=== PATIENT | female | born 1960 | race Asian ===

== ENCOUNTER 2020-05-28 22:27 | Inpatient (IN) | payer BC, OTHER ==
[~2020-05-28] VITALS: Ht 154.9 cm; Wt 65.9 kg
[2020-05-28] MEDS: HumaLOG INSULIN (NovoLOG) PER UNIT SC SCH (21:00)
[2020-05-28] MEDS ORDERED: NS 500 ML IV ONE (22:45)
[2020-05-28 23:18] LABS: VENOUS BASE EXCESS -2.1 (-2.0-2.0); VENOUS HCO3 23.2 MEQ/L (23.0-27.0); VENOUS O2 SATURATION 86.9 % (60.0-80.0); VENOUS PARTIAL PRESSURE CO2 41.8 mmHg (38.0-50.0); VENOUS PARTIAL PRESSURE O2 54.9 mmHg (30.0-50.0); VENOUS PH 7.362 UNITS (7.330-7.430); VENOUS STANDARD HCO3 22.5 MEQ/L; VENOUS TOTAL CO2 24.5 MEQ/L (24.0-28.0)
[2020-05-28 23:22] LABS: BASO % 0.2 % (0.0-1.0); HEMATOCRIT 32.4 % (36.0-47.0); HEMOGLOBIN 10.5 g/dl (12.0-15.5); LYMPH # 0.8 10^3/uL (1.5-5.0); LYMPH % 16.1 % (24.0-44.0); MEAN CORPUSCULAR HEMOGLOBIN 26.1 pg (27.0-33.0); MEAN CORPUSCULAR HGB CONC 32.4 g/dl (32.0-36.5); MEAN CORPUSCULAR VOLUME 80.4 fl (80.0-96.0); MONO # 0.2 10^3/uL (0.0-0.8); MONO % 4.2 % (2.0-8.0); NEUTROPHILS # 3.9 10^3/uL (1.5-8.5); NEUTROPHILS % 78.7 % (36.0-66.0); PLATELET COUNT, AUTOMATED 190 10^3/uL (150-450); RED BLOOD COUNT 4.03 10^6/uL (4.00-5.40)
--- NOTE | 2020-05-28 23:25 | REPVR ---
PROCEDURE INFORMATION: Exam: XR Chest, 1 View Exam date and time: 05/28/2020 11:07 PM Age: 60 years old Clinical indication: Cough; Additional info: Coronavirus workup TECHNIQUE: Imaging protocol: XR of the chest Views: 1 view. COMPARISON: No relevant prior studies available. FINDINGS: Lungs: There is mild prominence of bronchovascular markings. However, there is no evidence of localized consolidation of lung. Pleural spaces: There is no evidence of pneumothorax or pleural effusion. Heart/Mediastinum: The heart is normal in size. Bones/joints: Unremarkable. IMPRESSION: Clear appearing lungs. Electronically signed by: Patel Rios On 05/28/2020 23:26:04 PM
[2020-05-28 23:39] LABS: INR 0.99; PROTHROMBIN TIME 13.3 SECONDS (12.5-14.3)
[2020-05-28 23:40] LABS: PARTIAL THROMBOPLASTIN TIME 39.4 SECONDS (24.2-38.5)
[2020-05-28 23:43] LABS: D-DIMER QUANT 2446.78 ng/ml (<500)
[2020-05-28 23:48] LABS: ALBUMIN 3.1 GM/DL (3.2-5.2); ALT/SGPT 105 U/L (12-78); BILIRUBIN,TOTAL 0.6 MG/DL (0.2-1.0); BLOOD UREA NITROGEN 13 MG/DL (7-18); CALCIUM LEVEL 8.2 MG/DL (8.8-10.2); CARBON DIOXIDE LEVEL 28 MEQ/L (21-32); CHLORIDE LEVEL 99 MEQ/L (98-107); CK-MB VALUE MASS < 1.0 NG/ML (<3.6); CPK CREATINE PHOSPHOKINASE 258 U/L (26-192); FERRITIN 1445 NG/ML (8-252); GLOMERULAR FILTRATION RATE > 60.0 (>45); GLUCOSE, FASTING 175 MG/DL (70-100); LDH LACTATE DEHYDROGENASE 523 U/L (84-246); MAGNESIUM LEVEL 1.6 MG/DL (1.8-2.4); MB/CK RELATIVE INDEX 0.39 (< OR =4); POTASSIUM SERUM 4.1 MEQ/L (3.5-5.1); SODIUM LEVEL 134 MEQ/L (136-145); TOTAL PROTEIN 6.8 GM/DL (6.4-8.2); TROPONIN I < 0.02 NG/ML (< 0.10)
[2020-05-28] MEDS ORDERED: ZOLO100T PO (23:55)
[2020-05-28] MEDS ORDERED: JANU50TA8 PO (23:55)
[2020-05-28] MEDS ORDERED: VITA50005 PO (23:55)
[2020-05-28] MEDS ORDERED: ATOR40TA75 PO (23:55)
[2020-05-28] MEDS ORDERED: LANTINJ4 SC (23:55)
--- OUTSIDE RECORDS SUMMARY | 2020-05-28 23:56 | CCD | Continuity of Care Document ---
Author Author Fabienne CARMICHAEL Organization Unknown Address [address] [place] [address] [address] [place] [address] Phone [phone] Care Team Providers Care Seat Joiner Name Role Phone ANAY CARMICHAEL AUTM [phone] Social History Type Date Description Comments Sex Unknown Assessments Date Code Description Provider 04/14/2020 Z03.818 Encounter for observ ation for suspected exposure to other biological agents ruled out MAGNUS Eugene
--- OUTSIDE RECORDS SUMMARY | 2020-05-28 23:57 | CCD ---
Author Author [facility] Organization [facility] Address Unknown Phone Unavailable Care Team Providers Care Parcel Post Weigher Name Role Phone REASON, L EDWARD DO Unavailable Unavailable REASON, L EDWARD DO Unavailable Unavailable REASON, L EDWARD DO Unavailable Unavailable REASON, L EDWARD DO Unavailable Unavailable REASON, L EDWARD DO Unavailable Unavailable REASON, L EDWARD DO Unavailable Unavailable REASON, L EDWARD DO Unavailable Unavailable REASON, L EDWARD DO Unavailable Unavailable REASON, L EDWARD DO Unavailable Unavailable REASON, L EDWARD DO Unavailable Unavailable REASON, L EDWARD DO Unavailable Unavailable REASON, L EDWARD DO Unavailable Unavailable REASON, L EDWARD DO Unavailable Unavailable REASON, L EDWARD DO Unavailable Unavailable REASON, L EDWARD DO Unavailable Unavailable REASON, L EDWARD DO Unavailable Unavailable REASON, L EDWARD DO Unavailable Unavailable REASON, L EDWARD DO Unavailable Unavailable REASON, L EDWARD DO Unavailable Unavailable REASON, L EDWARD DO Unavailable Unavailable REASON, L EDWARD DO Unavailable Unavailable REASON, L EDWARD DO Unavailable Unavailable REASON, L EDWARD DO Unavailable Unavailable REASON, L EDWARD DO Unavailable Unavailable REASON, L EDWARD DO Unavailable Unavailable REASON, L EDWARD DO Unavailable Unavailable REASON, L EDWARD DO Unavailable Unavailable REASON, L EDWARD DO Unavailable Unavailable REASON, L EDWARD DO Unavailable Unavailable REASON, L EDWARD DO Unavailable Unavailable REASON, L EDWARD DO Unavailable Unavailable REASON, L EDWARD DO Unavailable Unavailable REASON, L EDWARD DO Unavailable Unavailable REASON, L EDWARD DO Unavailable Unavailable REASON, L EDWARD DO Unavailable Unavailable REASON, L EDWARD DO Unavailable Unavailable REASON, L EDWARD DO Unavailable Unavailable REASON, L EDWARD DO Unavailable Unavailable REASON, L EDWARD DO Unavailable Unavailable REASON, L EDWARD DO Unavailable Unavailable REASON, L EDWARD DO Unavailable Unavailable REASON, L EDWARD DO Unavailable Unavailable REASON, L EDWARD DO Unavailable Unavailable REASON, L EDWARD DO Unavailable Unavailable REASON, L EDWARD DO Unavailable Unavailable REASON, L EDWARD DO Unavailable Unavailable REASON, L EDWARD DO Unavailable Unavailable REASON, L EDWARD DO Unavailable Unavailable REASON, L EDWARD DO Unavailable Unavailable REASON, L EDWARD DO Unavailable Unavailable REASON, L EDWARD DO Unavailable Unavailable REASON, L EDWARD DO Unavailable Unavailable REASON, L EDWARD DO Unavailable Unavailable REASON, L EDWARD DO Unavailable Unavailable REASON, L EDWARD DO Unavailable Unavailable REASON, L EDWARD DO Unavailable Unavailable REASON, L EDWARD DO Unavailable Unavailable REASON, L EDWARD DO Unavailable Unavailable REASON, L EDWARD DO Unavailable Unavailable REASON, L EDWARD DO Unavailable Unavailable REASON, L EDWARD DO Unavailable Unavailable REASON, L EDWARD DO Unavailable Unavailable REASON, L EDWARD DO Unavailable Unavailable REASON, L EDWARD DO Unavailable Unavailable REASON, L EDWARD DO Unavailable Unavailable Re-disclosure Warning The records that you are about to access may contain information from federally-assisted alcohol or drug abuse programs. If such information is present, then the following federally mandated warning applies: This information has been disclosed to you from records protected by federal confidentiality rules (42 CFR part 2). The federal rules prohibit you from making any further disclosure of this information unless further disclosure is expressly permitted by the written consent of the person to whom it pertains or as otherwise permitted by 42 CFR part 2. A general authorization for the release of medical or other information is NOT sufficient for this purpose. The Federal rules restrict any use of the information to criminally investigate or prosecute any alcohol or drug abuse patient.The records that you are about to access may contain highly sensitive health information, the redisclosure of which is protected by Article 27-F of the [facility] Public Health law. If you continue you may have access to information: Regarding HIV / AIDS; Provided by facilities licensed or operated by the [facility] Office of Mental Health; or Provided by the [facility] Office for People With Developmental Disabilities. If such information is present, then the following [facility] mandated warning applies: This information has been disclosed to you from confidential records which are protected by state law. State law prohibits you from making any further disclosure of this information without the specific written consent of the person to whom it pertains, or as otherwise permitted by law. Any unauthorized further disclosure in violation of state law may result in a fine or retirement sentence or both. A general authorization for the release of medical or other information is NOT sufficient authorization for further disc losure. Encounters Encounter Providers Location Date Indications Data Source(s ) Outpatient Attender: EDSHANIQUA REASON DO [facility] 01/25 05:54:00 PM EDT - 01/26/2020 05:55:00 PM EDT E11.41 E03.9 E78.5 E55.9 [facility] E11.41 E03.9 E78.5 E55.9 Patient discharged. Insurance Providers Payer name Policy type / Coverage type Policy ID Covered green party ID Covered green party's relationship to mast Policy Mast Plan Information [place] 302/307 [id number] SP [id number] [employer] CLAIM[employer] [id number] SP [id number] [employer] [place] [id number] S [id number] [employer] [place] [id number] S [id number] BCBS of [facility] [place] Other 0 Self 0 BLUE CROSS -O/P [id number] 18 [id number] BLUE CROSS -O/P [id number] [employer] EM[employer]OYEE -OP [id number] MEMIC - CLINIC [id number] [employer] EMPLOYEE -OP VYS 18 VYS MEMIC -O/P [id number] WORKERS COMP - CLINIC [id number] MEMIC -O/P [id number] [employer] EMPLOYEE -OP [id number] 18 [id number] Problems, Conditions, and Diagnoses Code Display Name Description Problem Type Effective Dates Data Source(s) E55.9 Vitamin D deficiency, unspecified VITAMIN D DEFI CIENCY, UNSPECIFIED Diagnosis 01/26/2020 05:54:00 PM EDT [facility] E78.5 Hyperlipidemia, unspecified HYPERLIPIDEMIA, UNSPECIFIE D Diagnosis 01/26/2020 05:54:00 PM [facility] E03.9 Hypothyroidism, unspecified HYPOTHYROIDISM, UNSPECIFIE D Diagnosis 01/26/2020 05:54:00 PM [facility] E11.41 Type 2 diabetes mellitus with diabetic m ononeuropathy TYPE 2 DIABETES MELLITUS WITH DIABETIC MONONEUROPATHY Diagnosis 01/26/2020 05:54:00 PM [facility] Surgeries/Procedures Procedure Description Date Indications Data Source(s) THYROXINE FREE ASSAY OF FREE THYROXINE 01/26/2020 12:00:00 AM [facility] THYROID STIMULATING HORMONE TSH ASSAY THYROID STIM HORMONE 1 12:00:00 AM [facility] 25 HYDROXY INCLUDES FRACTIONS IF PERFORMED VITAMIN D 25 HYDR OXY 01/26/2020 12:00:00 AM [facility] URNLS DIP STICK/TABLET REAGENT AUTO MICROSCOPY URINALYSIS AU TO W/SCOPE 01/26/2020 12:00:00 AM [facility] COLLECTION VENOUS BLOOD VENIPUNCTURE ROUTINE VENIPUNCTURE 12:00:00 AM [facility] BLOOD COUNT COMPLETE AUTO&AUTO DIFRNTL WBC COUNT COMPLETE CB C W/AUTO DIFF WBC 01/26/2020 12:00:00 AM [facility] HEMOGLOBIN GLYCOSYLATED A1C GLYCOSYLATED HEMOGLOBIN TEST 03/2020 12:00:00 AM [facility] LIPID PANEL LIPID PANEL 01/26/2020 12:00:00 AM [facility] COMPREHENSIVE METABOLIC PANEL COMPREHEN METABOLIC PANEL 01/14 12:00:00 AM [facility] Results ID Date Data Source [id number] 04/14/2020 12:00:00 AM EST [facility] Name Value Range Interpretation Code Description Data Janelle rce(s) Supporting Document(s) SARS-CoV2 Rapid Antigen [facility] This lab was ordered by [facility] and reported by Howie Seaman MD. ID Date Data Source [id number] 01/26/2020 07:35:00 PM [facility] Name Value Range Interpretation Code Description Data Janelle rce(s) Supporting Document(s) Sodium 135 mmol/L 136-145 Below low normal [facility] ospital Potassium 3.5-5.1 Normal (applies to non-numeric resul ts) [facility] Chloride 96 mmol/L 98-107 Below low normal [facility] spital Carbon Dioxide CO2 21-32 Normal (applies to non-numer ic results) [facility] Anion Gap 5.0-16.0 Normal (applies to non-numeric resul ts) [facility] BUN 9 mg/dL 7-18 Normal (applies to non-numeric results) [facility] Creatinine,Serum 0.7-1.2 Normal (applies to non-numeric results) [facility] GFR >60 Normal (applies to non-numeric results) [facility] Glucose Level 175 mg/dL 60-99 Above high normal [facility] Reference range is only applicable when patient is fasting Note the following drug interference: Sulfasalazine Sulfapyridine Can see falsely depressed Can see falsely elevated result with up to 17% results with up to 11% decrease in measurement increase in measurement Recommend patients be collected for this test prior to administration of either drug. Calcium 8.5-10.1 Normal (applies to non-numeric resul ts) [facility] Bilirubin,Total 0.1-1.9 Normal (applies to non-numeric results) [facility] SGOT(AST) 26 U/L 15-37 Normal (applies to non-numeric resul ts) [facility] Note the following drug interference: Sulfasalazine Sulfapyridine Can see falsely depressed Can see falsely elevated result with up to 10% results with up to 10% decrease in measurement increase in measurement Recommend patients be collected for this test prior to administration of either drug. SGPT(ALT) 36 U/L 12-78 Normal (applies to non-numeric resul ts) [facility] Note the following drug interference: Sulfasalazine Sulfapyridine Can see falsely depressed Can see falsely elevated result with up to 29% results with up to 10% decrease in measurement increase in measurement Recommend patients be collected for this test prior to administration of either drug. Alkaline Phosphatase 81 U/L 38-126 Normal (applies to non-num manuel results) [facility] can increase Alkaline Phosp le vels up to 2 times the normal adult value. Normal values for children and adolescents are 2 to 3 times the normal adult value. Total Protein 6.0-8.2 Normal (applies to non-numeric re sults) [facility] Albumin Level 3.4-5.0 Normal (applies to non-numeric re sults) [facility] ID Date Data Source [id number] 01/26/2020 07:35:00 PM EDT [facility] Name Value Range Interpretation Code Description Data Janelle rce(s) Supporting Document(s) Triglycerides 365 mg/dL <150 Above high normal [facility] Cholesterol 280 mg/dL 100-200 Above high normal [facility] LDL Cholesterol Calculated 149 0-130 Above high normal [facility] HDL Cholesterol 58 mg/dL 40-60 Normal (applies to non-numeric results) [facility] Cholesterol/HDL Ratio 3.6-6.7 Normal (applies to non-nu meric results) [facility] ID Date Data Source [id number] 01/26/2020 07:35:00 PM [facility] Name Value Range Interpretation Code Description Data Janelle rce(s) Supporting Document(s) Thyroid Stimulate Hormone TSH 0.358-3.74 No rmal (applies to non-numeric results) [facility] ID Date Data Source [id number] 01/26/2020 07:35:00 PM [facility] Value Range Interpretation Code Description Data Janelle rce(s) Supporting Document(s) Free T4 (Free Thyroxine) 0.76-1.46 Normal (applies to non -numeric results) [facility] ID Date Data Source [id number] 01/26/2020 07:34:00 PM [facility] Value Range Interpretation Code Description Data Janelle rce(s) Supporting Document(s) Vitamin D, Total 30.0-100.0 Below low normal [facility] ID Date Data Source [id number] 01/26/2020 07:09:00 PM EDT [facility] Name Value Range Interpretation Code Description Data Janelle rce(s) Supporting Document(s) Color,Urine Colorl-Dk Y Normal (applies to non-numeric res ults) [facility] Clarity,Urine Clear Normal (applies to non-numeric re sults) [facility] Specific [place],Urine 1.005-1.030 Normal (applies to non- numeric results) [facility] pH,Urine 5.0-8.0 Normal (applies to non-numeric resul ts) [facility] Protein,Urine Negative Normal (applies to non-numeric re sults) [facility] Glucose,Urine Negative Normal (applies to non-numeric re sults) [facility] Ketones,Urine Negative Normal (applies to non-numeric re sults) [facility] Blood,Urine Negative Normal (applies to non-numeric resu lts) [facility] Bilirubin,Urine Negative Normal (applies to non-numeric results) [facility] Urobilinogen,Urine 0.2-1.0 Normal (applies to non-numer ic results) [facility] Leukocyte Esterase,Urine Negative [facility] Nitrite,Urine Negative Normal (applies to non-numeric re sults) [facility] RBC,Urine None Seen Normal (applies to non-numeric resul ts) [facility] WBC,Urine None Seen [facility] Casts,Urine None Seen Normal (applies to non-numeric resu lts) [facility] Squamous Cells,Urine None Seen [facility] Transitional Cells,Ur None Seen [facility] Bacteria,Urine None Seen [facility] ital ID Date Data Source [id number] 01/26/2020 07:07:00 PM EDT [facility] Name Value Range Interpretation Code Description Data Janelle rce(s) Supporting Document(s) Hemoglobin A1c 4.4-6.2 Above high normal [facility] Estimated Avg Glucose 189 mg/dL 126-240 Normal (applies to non-numeric results) [facility] ID Date Data Source [id number] 01/26/2020 06:58:00 PM EDT [facility] Name Value Range Interpretation Code Description Data Janelle rce(s) Supporting Document(s) White Blood Count 3.5-10.5 Normal (applies to non-numeri c results) [facility] Red Blood Count 3.90-5.00 Normal (applies to non-numeric results) [facility] Hemoglobin 12.0-15.5 Normal (applies to non-numeric resul ts) [facility] Hematocrit 34.9-44.5 Normal (applies to non-numeric resul ts) [facility] Mean Corpuscular Volume 81.2-95.1 Normal (applies to non- numeric results) [facility] Mean Corpuscular Hgb 25.6-32.2 Normal (applies to non-num manuel results) [facility] Mean Corpuscular Hgb Conc 32.0-36.0 Below low normal [facility] Red Cell Distribution Width 11.9-15.5 Normal (appli es to non-numeric results) [facility] Platelet Count 261 x10 3/uL 150-450 Normal (applies to non-numeric results) [facility] Mean Platelet Volume 9.4-12.4 Below low normal [facility] Neutrophils% (Auto) 31.0-71.0 Normal (applies to non-nume eldon results) [facility] Lymphocytes% (Auto) 20.0-55.0 Normal (applies to non-nume eldon results) [facility] Monocytes% (Auto) 4.0-12.0 Normal (applies to non-numeri c results) [facility] Eosinophils% (Auto) 1.0-8.0 Normal (applies to non-nume eldon results) [facility] Basophils% (Auto) 0.0-2.0 Normal (applies to non-numeri c results) [facility] Immature Granulocytes% (Auto) 0.0-2.0 Normal (amaris lies to non-numeric results) [facility] Neutrophils# (Auto) 1.50-6.20 Normal (applies to non-nume eldon results) [facility] Lymphocytes# (Auto) 1.20-4.00 Normal (applies to non-nume eldon results) [facility] Monocytes# (Auto) 0.00-0.90 Normal (applies to non-numeri c results) [facility] Eosinophils# (Auto) 0.00-0.50 Normal (applies to non-nume eldon results) [facility] Basophils# (Auto) 0.00-0.20 Normal (applies to non-numeri c results) [facility] Immature Granulocytes# (Auto) 0.00-7.00 No rmal (applies to non-numeric results) [facility] Procedure
[2020-05-28] MEDS ORDERED: ZETI10TA16 PO (23:59)
[2020-05-29] MEDS ORDERED: ISOVUE-370 76% 100ML VIAL As Ordered ONE (00:15)
--- NOTE | 2020-05-29 01:13 | REPVR ---
PROCEDURE INFORMATION: Exam: CT Angiography Chest With Contrast Exam date and time: 05/28/2020 11:53 PM Age: 60 years old Clinical indication: Shortness of breath; Additional info: Hypoxia/covid19 TECHNIQUE: Imaging protocol: Computed tomographic angiography of the chest with contrast. 3D rendering (Not supervised by radiologist): MIP and/or 3D reconstructed images were created by the technologist. Radiation optimization: All CT scans at this facility use at least one of these dose optimization techniques: automated exposure control; mA and/or kV adjustment per patient size (includes targeted exams where dose is matched to clinical indication); or iterative reconstruction. Contrast material: ISO; Contrast volume: 100 ml; Contrast route: INTRAVENOUS (IV); COMPARISON: CR PORTABLE CHEST X-RAY 05/28/2020 11:01 PM FINDINGS: Pulmonary arteries: The main pulmonary artery measures 25 mm. No pulmonary embolism is identified. Aorta: The ascending thoracic aorta measures 29 mm. Lungs: Scattered bilateral areas of pulmonary infiltrate with minimal consolidation and minimal scattered fibro-atelectatic change. Pleural spaces: Unremarkable. No pneumothorax. No pleural effusion. Heart: Unremarkable. No cardiomegaly. No pericardial effusion. Mediastinal space: There is a rounded area of confluence posterior to the right hilum in the medial right lower lobe measuring 2.6 x 2.7 x 2.3 cm which may reflect an underlying mass. Lymph nodes: There are some borderline bilateral hilar nodes. Bones/joints: Unremarkable. No acute fracture. Soft tissues: Unremarkable. IMPRESSION: 1. Bilateral pulmonary infiltrates with areas of consolidation and fibro-atelectatic change consistent with pneumonia. 2. Rounded area of confluence in the medial right lower lobe and an underlying mass measuring 2.6 x 2.7 x 2.3 cm is not excluded. 3. Borderline bilateral hilar nodes. 4. Otherwise negative CTA chest. No pulmonary embolism is identified. Electronically signed by: Clayton Burch On 05/29/2020 01:13:31 AM
[2020-05-29] MEDS ORDERED: GLUCOSE 4GM CHEW TABLET PO PRN (01:30)
[2020-05-29] MEDS ORDERED: DEXTROSE 50% 50 ML SYRINGE IV PRN (01:30)
[2020-05-29] MEDS ORDERED: GLUCAGON INJ 1MG VIAL SC PRN (01:30)
--- OUTSIDE RECORDS SUMMARY | 2020-05-29 01:35 | CCD ---
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 If you continue you may have access to information: Regarding HIV / AIDS; Provided by facilities licensed or operated by the [facility] Office of Mental Health; or Provided by the [facility] Office for People With Developmental Disabilities. If such information is present, then the following [facility] mandated warning applies: This information has been [...] law may result in a fine or custodial sentence or both. A general authorization for the release of medical or other information is NOT sufficient authorization for further disc losure. Encounters Encounter Providers Location Date Indications Data Source(s ) Outpatient Attender: EDSHANIQUA REASON DO [facility] 01/25 05:54:00 PM EDT - 01/26/2020 05:55:00 PM EDT E11.41 E03.9 E78.5 E55.9 [facility] E11.41 E03.9 E78.5 E55.9 Patient discharged. Insurance Providers Payer name Policy type / Coverage type Policy ID Covered constitution party ID Covered constitution party's relationship to mast Policy Mast Plan Information [place] [id number]/[phone] [id number] SP [id number] [employer] CLAIMS [id number] SP [id number] [employer] [employer] [place] [id number] S [id number] [employer] [place] [id number] S [id number] BCBS of [facility] Other 0 Self 0 BLUE CROSS -O/P [id number] 18 [id number] BLUE CROSS -O/P [id number] 8 [id number] [employer] EMPLOYEE -OP [id number] MEMIC - CLINIC [id number] [employer] EMPLOYEE -OP VYS 18 VYS MEMIC -O/P [id number] WORKERS COMP - CLINIC [id number] 18 [id number] MEMIC -O/P [id number] 18 [id number] [employer] EMPLOYEE -OP [id number] Problems, Conditions, and Diagnoses Code Display Name Description Problem Type Effective Dates Data Source(s) E55.9 Vitamin D deficiency, unspecified VITAMIN D DEFI CIENCY, UNSPECIFIED Diagnosis 01/26/2020 05:54:00 PM EDT [facility] E78.5 Hyperlipidemia, unspecified HYPERLIPIDEMIA, UNSPECIFIE D Diagnosis 01/26/2020 05:54:00 PM [facility] E03.9 Hypothyroidism, unspecified HYPOTHYROIDISM, UNSPECIFIE D Diagnosis 01/26/2020 05:54:00 PM [facility] E11.41 Type 2 diabetes mellitus with diabetic m ononeuropathy TYPE 2 DIABETES MELLITUS WITH DIABETIC MONONEUROPATHY Diagnosis 01/26/2020 05:54:00 PM [facility] Surgeries/Procedures Procedure Description Date Indications Data Source(s) THYROXINE FREE ASSAY OF FREE THYROXINE 01/26/2020 12:00:00 AM [facility] THYROID STIMULATING HORMONE TSH ASSAY THYROID STIM HORMONE 1 12:00:00 AM [facility] 25 HYDROXY INCLUDES FRACTIONS IF PERFORMED VITAMIN D 25 HYDR OXY 01/26/2020 12:00:00 AM [facility] URNLS DIP STICK/TABLET REAGENT AUTO MICROSCOPY URINALYSIS AU TO W/SCOPE 01/26/2020 12:00:00 AM [facility] COLLECTION VENOUS BLOOD VENIPUNCTURE ROUTINE VENIPUNCTURE 12:00:00 AM [facility] BLOOD COUNT COMPLETE AUTO&AUTO DIFRNTL WBC COUNT COMPLETE CB C W/AUTO DIFF WBC 01/26/2020 12:00:00 AM [facility] HEMOGLOBIN GLYCOSYLATED A1C GLYCOSYLATED HEMOGLOBIN TEST 03/2020 12:00:00 AM [facility] LIPID PANEL LIPID PANEL 01/26/2020 12:00:00 AM [facility] COMPREHENSIVE METABOLIC PANEL COMPREHEN METABOLIC PANEL 01/14 12:00:00 AM [facility] Results ID Date Data Source [id number] 04/14/2020 12:00:00 AM EST [facility] Name Value Range Interpretation Code Description Data Janelle rce(s) Supporting Document(s) SARS-CoV2 Rapid Antigen [facility] This lab was ordered by [facility] and reported by Howie Seaman MD. ID Date Data Source [id number] 01/26/2020 07:35:00 PM [facility] Name Value Range Interpretation Code Description Data Janelle rce(s) Supporting Document(s) Sodium 135 mmol/L 136-145 Below low normal [facility] Potassium 3.5-5.1 Normal (applies to non-numeric resul ts) [facility] Chloride 96 mmol/L 98-107 Below low normal [facility] sp[facility] Carbon Dioxide CO2 21-32 Normal (applies to non-numer ic results) [facility] Anion Gap 5.0-16.0 Normal (applies to non-numeric resul ts) [facility] BUN 9 mg/dL 7-18 Normal (applies to non-numeric results) [facility] Creatinine,Serum 0.7-1.2 Normal (applies to non-numeric results) [facility] GFR >60 Normal (applies to non-numeric results) [facility] Glucose Level 175 mg/dL 60-99 Above high normal [facility] Reference range is only applicable when patient is fasting Note the following drug interference: Sulfasalazine Sulfapyridine Can see falsely depressed Can see falsely elevated result with up to 17% results with up to 11% decrease in measurement increase in measurement Recommend patients be collected for this test prior to administration of either drug. Calcium 8.5-10.1 Normal (applies to non-numeric resul ts) [facility] Bilirubin,Total 0.1-1.9 Normal (applies to non-numeric results) [facility] SGOT(AST) 26 U/L 15-37 Normal (applies to non-numeric resul ts) [facility] Note the following drug interference: Sulfasalazine Sulfapyridine Can see falsely depressed Can see falsely elevated result with up to 10% results with up to 10% decrease in measurement increase in measurement Recommend patients be collected for this test prior to administration of either drug. SGPT(ALT) 36 U/L 12-78 Normal (applies to non-numeric resul ts) [facility] Note the following drug interference: Sulfasalazine Sulfapyridine Can see falsely depressed Can see falsely elevated result with up to 29% results with up to 10% decrease in measurement increase in measurement Recommend patients be collected for this test prior to administration of either drug. Alkaline Phosphatase 81 U/L 38-126 Normal (applies to non-num manuel results) [facility] can increase Alkaline Phosp le vels up to 2 times the normal adult value. Normal values for children and adolescents are 2 to 3 times the normal adult value. Total Protein 6.0-8.2 Normal (applies to non-numeric re sults) [facility] Albumin Level 3.4-5.0 Normal (applies to non-numeric re sults) [facility] ID Date Data Source [id number] 01/26/2020 07:35:00 PM EDT [facility] Name Value Range Interpretation Code Description Data Janelle rce(s) Supporting Document(s) Triglycerides 365 mg/dL <150 Above high normal [facility] Cholesterol 280 mg/dL 100-200 Above high normal [facility] LDL Cholesterol Calculated 149 0-130 Above high normal [facility] HDL Cholesterol 58 mg/dL 40-60 Normal (applies to non-numeric results) [facility] Cholesterol/HDL Ratio 3.6-6.7 Normal (applies to non-nu meric results) [facility] ID Date Data Source [id number] 01/26/2020 07:35:00 PM [facility] Name Value Range Interpretation Code Description Data Janelle rce(s) Supporting Document(s) Thyroid Stimulate Hormone TSH 0.358-3.74 No rmal (applies to non-numeric results) [facility] ID Date Data Source [id number] 01/26/2020 07:35:00 PM [facility] Value Range Interpretation Code Description Data Janelle rce(s) Supporting Document(s) Free T4 (Free Thyroxine) 0.76-1.46 Normal (applies to non -numeric results) [facility] ID Date Data Source [id number] 01/26/2020 07:34:00 PM [facility] Value Range Interpretation Code Description Data Janelle rce(s) Supporting Document(s) Vitamin D, Total 30.0-100.0 Below low normal [facility] ID Date Data Source [id number] 01/26/2020 07:09:00 PM EDT [facility] Name Value Range Interpretation Code Description Data Janelle rce(s) Supporting Document(s) Color,Urine Colorl-Dk Y Normal (applies to non-numeric res ults) [facility] Clarity,Urine Clear Normal (applies to non-numeric re sults) [facility] Specific [place],Urine 1.005-1.030 Normal (applies to non- numeric results) [facility] pH,Urine 5.0-8.0 Normal (applies to non-numeric resul ts) [facility] Protein,Urine Negative Normal (applies to non-numeric re sults) [facility] Glucose,Urine Negative Normal (applies to non-numeric re sults) [facility] Ketones,Urine Negative Normal (applies to non-numeric re sults) [facility] Blood,Urine Negative Normal (applies to non-numeric resu lts) [facility] Bilirubin,Urine Negative Normal (applies to non-numeric results) [facility] Urobilinogen,Urine 0.2-1.0 Normal (applies to non-numer ic results) [facility] Leukocyte Esterase,Urine Negative [facility] Nitrite,Urine Negative Normal (applies to non-numeric re sults) [facility] RBC,Urine None Seen Normal (applies to non-numeric resul ts) [facility] WBC,Urine None Seen [facility] Casts,Urine None Seen Normal (applies to non-numeric resu lts) [facility] Squamous Cells,Urine None Seen [facility] Transitional Cells,Ur None Seen [facility] Bacteria,Urine None Seen [facility] ital ID Date Data Source [id number] 01/26/2020 07:07:00 PM EDT [facility] Name Value Range Interpretation Code Description Data Janelle rce(s) Supporting Document(s) Hemoglobin A1c 4.4-6.2 Above high normal [facility] Estimated Avg Glucose 189 mg/dL 126-240 Normal (applies to non-numeric results) [facility] ID Date Data Source [id number] 01/26/2020 06:58:00 PM EDT [facility] Name Value Range Interpretation Code Description Data Janelle rce(s) Supporting Document(s) White Blood Count 3.5-10.5 Normal (applies to non-numeri c results) [facility] Red Blood Count 3.90-5.00 Normal (applies to non-numeric results) [facility] Hemoglobin 12.0-15.5 Normal (applies to non-numeric resul ts) [facility] Hematocrit 34.9-44.5 Normal (applies to non-numeric resul ts) [facility] Mean Corpuscular Volume 81.2-95.1 Normal (applies to non- numeric results) [facility] Mean Corpuscular Hgb 25.6-32.2 Normal (applies to non-num manuel results) [facility] Mean Corpuscular Hgb Conc 32.0-36.0 Below low normal [facility] Red Cell Distribution Width 11.9-15.5 Normal (appli es to non-numeric results) [facility] Platelet Count 261 x10 3/uL 150-450 Normal (applies to non-numeric results) [facility] Mean Platelet Volume 9.4-12.4 Below low normal [facility] Neutrophils% (Auto) 31.0-71.0 Normal (applies to non-nume eldon results) [facility] Lymphocytes% (Auto) 20.0-55.0 Normal (applies to non-nume eldon results) [facility] Monocytes% (Auto) 4.0-12.0 Normal (applies to non-numeri c results) [facility] Eosinophils% (Auto) 1.0-8.0 Normal (applies to non-nume eldon results) [facility] Basophils% (Auto) 0.0-2.0 Normal (applies to non-numeri c results) [facility] Immature Granulocytes% (Auto) 0.0-2.0 Normal (amaris lies to non-numeric results) [facility] Neutrophils# (Auto) 1.50-6.20 Normal (applies to non-nume eldon results) [facility] Lymphocytes# (Auto) 1.20-4.00 Normal (applies to non-nume eldon results) [facility] Monocytes# (Auto) 0.00-0.90 Normal (applies to non-numeri c results) [facility] Eosinophils# (Auto) 0.00-0.50 Normal (applies to non-nume eldon results) [facility] Basophils# (Auto) 0.00-0.20 Normal (applies to non-numeri c results) [facility] Immature Granulocytes# (Auto) 0.00-7.00 No rmal (applies to non-numeric results) [facility] Procedure
[2020-05-29] MEDS ORDERED: REMDESIVIR 200 MG in NS 250 ML IV ONE (02:00)
[2020-05-29 03:16] VITALS: O2SAT 94
[2020-05-29 03:17] VITALS: BP 102/57
[2020-05-29] MEDS: LEVEMIR (INSULIN DETEMIR) 1 UNITS/0.01ML SC SCH ×2 (03:28→20:28)
[2020-05-29] MEDS ORDERED: SODIUM CHLORIDE 0.9% INJ 10 ML SYR IV ONE (04:00)
[2020-05-29] MEDS ORDERED: MAGNESIUM OXIDE 400MG TAB (MAG-OX) PO ONE (04:30)
[2020-05-29] MEDS ORDERED: ACETAMINOPHEN 500 MG TAB PO ONE (04:30)
--- NOTE | 2020-05-29 05:19 | ECGEPIP ---
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
--- NOTE | 2020-05-29 05:53 | HPEPDOC ---
General Date of Admission May 29, 2020 at 01:18 Date of Service: May 29, 2020 Chief Complaint The patient is a 60-year-old female admitted with a reason for visit of Covid+,Hypoxia. Source: Patient History of Present Illness Mrs. Vines is a 60 year old female with IDDM who is here for worsening dyspnea and cough and found to have COVID PNA. She works at [employer] and may have had an exposure there. About 2 to 3 days ago, she started to have dyspnea and cough. Symptoms progressively worsened to the point where she is severe dyspneic on exertion. Her cough produces clear phlegm, no blood. Since she was worsening, she came to the ED and was found to be hypoxic at rest, 84%. She required 4L of oxygen. Otherwise CXR was clear. CTA was ordered later which demonstrated bilateral pulmonary infiltrates with consolidation which is consistent with pneumonia. Home Medications Scheduled Atorvastatin Calcium (Atorvastatin Calcium) 40 Mg Tablet, 40 MG PO QHS, (Reported) Ergocalciferol (Vitamin D2) (Vitamin D2) 50,000 Units Cap, 50,000 UNITS PO 1XWK, (Reported) TUESDAYS Ezetimibe (Zetia) 10 Mg Tablet, 10 MG PO QHS, (Reported) Insulin Glargine,Hum.rec.anlog (Lantus Solostar) 100 Unit/1 Ml Insuln.pen, 30 UNITS SC QHS, (Reported) Sertraline Hcl (Zoloft) 100 Mg Tablet, 200 MG PO DAILY, (Reported) Sitagliptin Phos/Metformin HCl (Janumet 50-1,000 mg Tablet) 1 Each Tablet, 1 TAB PO BID, (Reported) Allergies Coded Allergies: codeine (Verified Allergy, Severe, 05/29/20) Past Medical History Medical History 1. Hyperlipidemia 2. IDDM 3. Depression Surgical History 1. Left lumpectomy Family History Father: Brain aneurism Mother: Diabetes mellitus Social History * Smoker: Denies Alcohol: Denies Drugs: denies A-FIB/CHADSVASC A-FIB History Current/History of A-Fib/PAF?: No Review of Systems Constitutional: Reports: Malaise, Weakness, Fatigue Eyes: Denies: Redness Skin: Denies: Rash Pulmonary: Reports: Dyspnea, Cough (clera sputum) Cardiovascular: Reports: Chest Pain (with cough) Gastrointestinal: Reports: Diarrhea (on and off ); Denies: Nausea, Abdominal Pain Genitourinary: Denies: Dysuria Hematologic: Denies: Bruising Neurological: Reports: Other Symptoms (no paresthesias) Psych: Reports: Depression Physical Examination General Exam: Positive: Cooperative Eye Exam: Positive: EOMI; Negative: Sclera icteric ENT Exam: Positive: Atraumatic Neck Exam: Positive: Supple Chest Exam: Positive: Other (Coarse breath sounds) Heart Exam: Positive: Rate Normal, Regular Rhythm Abdomen Exam: Positive: Normal bowel sounds, Soft; Negative: Tenderness Extremity Exam: Negative: Edema Neuro Exam: Positive: Cranial Nerves 3-12 NL Psych Exam: Positive: Mental status NL, Mood NL Vital Signs Vital Signs Date Time Temp Pulse Resp B/P (MAP) Pulse Ox O2 Delivery O2 Flow Rate FiO2 05/29/20 03:17 100.9 78 20 102/57 (72) 94 Nasal Cannula 2.0 Laboratory Data Labs 24H Laboratory Tests 2 05/28/20 23:05: Immature Granulocyte % (Auto) 0.8, Neutrophils (%) (Auto) 78.7H, Lymphocytes (%) (Auto) 16.1L, Monocytes (%) (Auto) 4.2, Eosinophils (%) (Auto) 0.0, Basophils (%) (Auto) 0.2, Neutrophils # (Auto) 3.9, Lymphocytes # (Auto) 0.8L, Monocytes # (Auto) 0.2, Eosinophils # (Auto) 0.0, Basophils # (Auto) 0.0, Nucleated Red Blood Cells % (auto) 0.0, Prothrombin Time 13.3, Prothromb Time International Ratio 0.99, Activated Partial Thromboplast Time 39.4H, Fibrinogen 697H, D-Dimer, Quantitative 2446.78H, Blood Gas Bicarbonate Standard 22.5, Venous Blood pH 7.362, Venous Blood Partial Pressure CO2 41.8, Venous Blood Partial Pressure O2 54.9H, Venous Blood Total Carbon Dioxide 24.5, Venous Blood HCO3 23.2, Venous Blood Oxygen Saturation 86.9H, Venous Blood Base Excess -2.1L, Anion Gap 7L, Glomerular Filtration Rate > 60.0, Lactic Acid Level 1.1, Calcium Level 8.2L, Magnesium Level 1.6L, Ferritin 1445H, Total Bilirubin 0.6, Aspartate Amino Transf (AST/SGOT) 144H, Alanine Aminotransferase (ALT/SGPT) 105H, Alkaline Phosphatase 85, Lactate Dehydrogenase 523H, Total Creatine Kinase 258H, Creatine Kinase MB < 1.0, Creatine Kinase MB Relative Index 0.39, Troponin I < 0.02, C- Reactive Protein, Quantitative 16.00H, Total Protein 6.8, Albumin 3.1L, Albumin/Globulin Ratio 0.8L 05/29/20 03:19: Bedside Glucose (Misc Panel) 133H 05/29/20 04:43: CBC/BMP Laboratory Tests 05/28/20 23:05 Microbiology Microbiology 05/28/20 Blood Culture, Received Pending Assessment/Plan Mrs. Vines is a 60 year old female with IDDM who is here for worsening dyspnea and cough and found to have COVID PNA. She recently had symptoms about 2 to 3 days prior and hypoxic at rest with saturation of 84%. She did have mild elevation of ALT, but less than 5x upper limit of normal. Will hold Atorvastatin as it can cause transaminitis. Will start Remdesivir and monitor liver enzymes. Otherwise, dexamethasone, Lovenox (DVT ppx), and antibiotics (CAP). Plan / VTE VTE Prophylaxis Ordered?: Yes Plan Plan 1. COVID pneumonia with hypoxia -At rest 84% at room air -On admission required 4L -Remdesivir (monitor liver enzymes) -Dexamethasone, Lovenox (DVT ppx), and antibiotics (For CAP) 2. Pneumonia -Sputum culture, legionella, and strep pneumo ordered -Ceftriaxone and azithromycin -Pending procalcitonin 3. Transaminitis -Mildly elevated, but less than 5x the upper limit of normal -Hold atorvastatin -Monitor liver enzymes 4. Depression -Continue sertraline 5. IDDM -Sliding scale insulin and carbohydrate consistent diet -Continue basal insulin 6. DVT ppx -Lovenox GUY BRYSON DO May 29, 2020 05:53
[2020-05-29] MEDS: cefTRIAXone SOD 1 GM in D5W MINI-BAG PLUS 50 ML IV SCH (06:47)
[2020-05-29] MEDS: HumaLOG INSULIN (NovoLOG) PER UNIT SC SCH ×4 (07:30→20:29)
[2020-05-29] MEDS: AZITHROMYCIN INJ 500 MG, VIAL MATE ADAPTER 1 EACH in D5W 250 ML IV SCH (08:01)
[2020-05-29] MEDS: ASPIRIN 81 MG ENTERIC TAB PO SCH (08:02)
[2020-05-29] MEDS: dexameTHASONE 4 MG/ML 1ML VIAL (J1100 PER 1MG) IV SCH (08:02)
[2020-05-29] MEDS: SERTRALINE 100 MG TAB PO SCH (08:02)
[2020-05-29 08:06] LABS: HEMATOCRIT 29.3 % (36.0-47.0); HEMOGLOBIN 9.4 g/dl (12.0-15.5); MEAN CORPUSCULAR HGB CONC 32.1 g/dl (32.0-36.5); MEAN CORPUSCULAR VOLUME 80.9 fl (80.0-96.0); PLATELET COUNT, AUTOMATED 182 10^3/uL (150-450); RED BLOOD COUNT 3.62 10^6/uL (4.00-5.40); WHITE BLOOD COUNT 4.6 10^3/uL (4.0-10.0)
[2020-05-29 08:10] VITALS: O2SAT 97
[2020-05-29 08:25] LABS: BLOOD UREA NITROGEN 11 MG/DL (7-18); CALCIUM LEVEL 7.7 MG/DL (8.8-10.2); CARBON DIOXIDE LEVEL 26 MEQ/L (21-32); CHLORIDE LEVEL 101 MEQ/L (98-107); CREATININE FOR GFR 0.81 MG/DL (0.55-1.30); FERRITIN 1505 NG/ML (8-252); GLOMERULAR FILTRATION RATE > 60.0 (>45); GLUCOSE, FASTING 141 MG/DL (70-100); POTASSIUM SERUM 3.7 MEQ/L (3.5-5.1); SODIUM LEVEL 136 MEQ/L (136-145)
[2020-05-29] MEDS ORDERED: ENOXAPARIN 40MG/0.4ML SYRINGE (J1650 PER 10MG) SC SCH (09:00)
[2020-05-29] MEDS ORDERED: ENOXAPARIN 100MG/1ML SYRINGE (J1650 PER 10MG) SC SCH (11:15)
[2020-05-29 11:28] LABS: NT-PRO BNP 93 PG/ML (<125)
--- NOTE | 2020-05-29 11:50 | IPNPDOC ---
Text Note Date of Service The patient was seen on 05/29/20. NOTE Subjective: Patient stated her breathing mildly improved since yesterday. I e xplained patient CT chest findings Objective: GENERAL APPEARANCE: NAD HEENT: no scleral icterus, no JVD, EOMI CARDIOVASCULAR: S1S2 LUNGS: diminished lung sounds bl ABDOMEN: soft & not tender w palpitation MUSCULOSKELETAL: no cyanosis, no swelling INTEGUMENT: no generalized pallor NEUROLOGICAL: cranial nerve function from 2-12 intact intact, follows commands, speech not dysarthric Assessment/Plan Patient is a 60 year old female with IDDM who is here for worsening dyspnea and cough and found to have COVID PNA. She recently had symptoms about 2 to 3 days prior and hypoxic at rest with saturation of 84%. She did have mild elevation of ALT, but less than 5x upper limit of normal. Plan 1. COVID pneumonia with hypoxia Continue Remdesivir (monitor liver enzymes) -Dexamethasone, Lovenox (DVT ppx), Continue ceftriaxone and azithromycin. Procalcitonin elevated to 0.8 2. Pneumonia see above Incentive spirometry 3. Transaminitis Continue to monitor liver enzymes -Hold atorvastatin 4. Depression -Continue sertraline 5. IDDM -Sliding scale insulin and carbohydrate consistent diet -Continue basal insulin 6. DVT ppx -Lovenox VS,Fishbone, I+O VS, Fishbone, I+O Laboratory Tests 05/28/20 23:05 05/29/20 06:40 Vital Signs Date Time Temp Pulse Resp B/P (MAP) Pulse Ox O2 Delivery O2 Flow Rate FiO2 05/29/20 08:10 97 Nasal Cannula 2.0 05/29/20 07:38 99.6 05/29/20 03:17 78 20 102/57 (72) I&O- Last 24 Hours up to 6 AM 05/29/20 06:00 Intake Total 620 ml Output Total 300 ml Balance 320 ml MAR FLANAGAN DO May 29, 2020 11:50
[2020-05-29 12:12] LABS: ALBUMIN 2.7 GM/DL (3.2-5.2); BILIRUBIN,DIRECT 0.2 MG/DL (0.0-0.2); BILIRUBIN,TOTAL 0.6 MG/DL (0.2-1.0); TOTAL PROTEIN 6.2 GM/DL (6.4-8.2)
[2020-05-29 14:00] VITALS: BP 108/56
[2020-05-29] MEDS: guaiFENesin SYRUP 200 MG/10 ML UDC PO PRN ×2 (15:03→22:37)
[2020-05-29] MEDS: guaiFENesin ER 600 MG TAB PO SCH ×2 (15:03→20:26)
[2020-05-29 20:00] VITALS: BP 99/51; O2SAT 93
[2020-05-29] MEDS: RAMELTEON 8 MG TAB (ROZEREM) PO SCH (20:26)
[2020-05-29] MEDS ORDERED: REMDESIVIR 100 MG in NS 250 ML IV SCH (23:00)
[2020-05-30] VITALS (10 sets, daily range): BP systolic 97–103; BP diastolic 55–61; O2SAT 87–96
[2020-05-30] MEDS ORDERED: REMDESIVIR 100 MG in NS 250 ML IV SCH (02:00)
[2020-05-30] MEDS ORDERED: SODIUM CHLORIDE 0.9% INJ 10 ML SYR IV SCH ×2 (03:00)
[2020-05-30] MEDS: cefTRIAXone SOD 1 GM in D5W MINI-BAG PLUS 50 ML IV SCH (06:21)
[2020-05-30 07:51] LABS: HEMATOCRIT 29.8 % (36.0-47.0); HEMOGLOBIN 9.6 g/dl (12.0-15.5); MEAN CORPUSCULAR HGB CONC 32.2 g/dl (32.0-36.5); MEAN CORPUSCULAR VOLUME 80.8 fl (80.0-96.0); PLATELET COUNT, AUTOMATED 210 10^3/uL (150-450); RED BLOOD COUNT 3.69 10^6/uL (4.00-5.40); WHITE BLOOD COUNT 3.9 10^3/uL (4.0-10.0)
[2020-05-30 08:27] LABS: ALBUMIN 2.6 GM/DL (3.2-5.2); ALT/SGPT 436 U/L (12-78); BILIRUBIN,DIRECT 0.2 MG/DL (0.0-0.2); BILIRUBIN,TOTAL 0.3 MG/DL (0.2-1.0); BLOOD UREA NITROGEN 14 MG/DL (7-18); CALCIUM LEVEL 8.2 MG/DL (8.8-10.2); CARBON DIOXIDE LEVEL 27 MEQ/L (21-32); CHLORIDE LEVEL 104 MEQ/L (98-107); CREATININE FOR GFR 0.63 MG/DL (0.55-1.30); FERRITIN 3572 NG/ML (8-252); GLOMERULAR FILTRATION RATE > 60.0 (>45); GLUCOSE, FASTING 142 MG/DL (70-100); POTASSIUM SERUM 3.7 MEQ/L (3.5-5.1); SODIUM LEVEL 138 MEQ/L (136-145); TOTAL PROTEIN 6.2 GM/DL (6.4-8.2)
[2020-05-30] MEDS ORDERED: ENOXAPARIN 40MG/0.4ML SYRINGE (J1650 PER 10MG) SC SCH (09:00)
[2020-05-30] MEDS: AZITHROMYCIN INJ 500 MG, VIAL MATE ADAPTER 1 EACH in D5W 250 ML IV SCH (09:13)
[2020-05-30] MEDS: HumaLOG INSULIN (NovoLOG) PER UNIT SC SCH ×4 (09:13→21:00)
[2020-05-30] MEDS: dexameTHASONE 4 MG/ML 1ML VIAL (J1100 PER 1MG) IV SCH (09:14)
[2020-05-30] MEDS: guaiFENesin ER 600 MG TAB PO SCH ×2 (09:14→21:03)
[2020-05-30] MEDS: SERTRALINE 100 MG TAB PO SCH (09:14)
[2020-05-30] MEDS: ASPIRIN 81 MG ENTERIC TAB PO SCH (09:14)
[2020-05-30] MEDS: ENOXAPARIN 30MG/0.3ML SYRINGE (J1650 PER 10MG) SC SCH ×2 (09:15→21:05)
[2020-05-30] MEDS ORDERED: PANTOPRAZOLE 40MG TAB (PROTONIX) PO ONE (10:45)
--- NOTE | 2020-05-30 11:16 | IPNPDOC ---
Text Note Date of Service The patient was seen on 05/30/20. NOTE Subjective: Patient is 60-year-old female with a PMHx of IDDM2, DLP, Depression , who presented to the emergency room with shortness of breath and cough and was found to have COVID19. Patient was admitted to the hospitalist service for further evaluation and treatment I have assumed care of this patient at 7AM on 05/30. Patient was seen and examined at the bedside. Currently patient reports that she feels relatively fine, so reports some shortness of breath and fatigue with exertion. Reports a productive cough. Denies any chest pain, has not experience any nausea, vomiting, abdominal pain, diarrhea, or urinary discomfort. Denies any leg swelling. Objective: Vitals (See below) General: Lying in bed, appears comfortable, AAOx3 HEENT: NC, AT CVS: +S1S2 Lungs: Fair air entry b/l, mild crackles heard at bases Abdomen: Soft, ND, NT Extremities: - Edema, - Calf tenderness Assessment and plan: Acute hypoxic respiratory failure - likely 2/2 COVID19 pneumonia, possibly 2/2 superimposed bacterial infection - Patient still reports that she feels shortness of breath with exertion. Reports productive cough - Currently is on nasal cannula at 2-3 L - Inflammatory markers have increased - c/w Dexamethasone (Day #2) - Will DC Remdesivir (re: Transaminitis) - c/w Ceftriaxone and azithromycin (Day #2); Will trend procalcitonin - c/w Mucinex - Will start Incentive spirometry / acapella Transaminitis - Discontinued Remdesivir - Will check hepatitis profile - Will check liver US IDDM2 - Will c/w ISS and Levemir DLP - Atorvastatin on hold Depression / Insomnia - c/w Sertraline GI prophylaxis - Will start Protonix DVT prophylaxis - c/w Lovenox weight-based prophylactic dosing Disposition: - Awaiting clinical improvement - Called and updated her daughter Jennifer: [phone] VS,Mellisa, I+O VS, Mellisa, I+O Laboratory Tests 05/30/20 07:01 Vital Signs Date Time Temp Pulse Resp B/P (MAP) Pulse Ox O2 Delivery O2 Flow Rate FiO2 05/30/20 07:41 91 Nasal Cannula 3.0 05/30/20 04:00 98.6 63 18 100/61 (74) I&O- Last 24 Hours up to 6 AM 05/30/20 06:00 Intake Total 865 ml Output Total 1400 ml Balance -535 ml TONY ANTONIO MD May 30, 2020 11:16
[2020-05-30] MEDS: RAMELTEON 8 MG TAB (ROZEREM) PO SCH (21:00)
[2020-05-30] MEDS: LEVEMIR (INSULIN DETEMIR) 1 UNITS/0.01ML SC SCH (21:09)
[2020-05-31 00:10] VITALS: O2SAT 92
[2020-05-31 04:00] VITALS: O2SAT 94
[2020-05-31 05:42] LABS: HEMOGLOBIN 10.3 g/dl (12.0-15.5); MEAN CORPUSCULAR HGB CONC 32.2 g/dl (32.0-36.5); MEAN CORPUSCULAR VOLUME 80.8 fl (80.0-96.0); PLATELET COUNT, AUTOMATED 252 10^3/uL (150-450); RED BLOOD COUNT 3.96 10^6/uL (4.00-5.40); WHITE BLOOD COUNT 5.2 10^3/uL (4.0-10.0)
[2020-05-31] MEDS: cefTRIAXone SOD 1 GM in D5W MINI-BAG PLUS 50 ML IV SCH (05:42)
[2020-05-31 05:54] VITALS: BP 99/51
[2020-05-31 06:42] LABS: ALBUMIN 2.6 GM/DL (3.2-5.2); ALT/SGPT 315 U/L (12-78); BILIRUBIN,DIRECT 0.2 MG/DL (0.0-0.2); BILIRUBIN,TOTAL 0.3 MG/DL (0.2-1.0); BLOOD UREA NITROGEN 14 MG/DL (7-18); C REACTIVE PROTEIN QUANTITATIV 5.86 MG/DL (0.00-0.30); CALCIUM LEVEL 8.7 MG/DL (8.8-10.2); CARBON DIOXIDE LEVEL 27 MEQ/L (21-32); CHLORIDE LEVEL 104 MEQ/L (98-107); CREATININE FOR GFR 0.67 MG/DL (0.55-1.30); FERRITIN 2274 NG/ML (8-252); GLOMERULAR FILTRATION RATE > 60.0 (>45); GLUCOSE, FASTING 62 MG/DL (70-100); POTASSIUM SERUM 3.4 MEQ/L (3.5-5.1); SODIUM LEVEL 139 MEQ/L (136-145); TOTAL PROTEIN 6.8 GM/DL (6.4-8.2)
--- NOTE | 2020-05-31 06:55 | REPVR ---
PROCEDURE INFORMATION: Exam: US Abdomen, Limited; Right Upper Quadrant Exam date and time: 05/31/2020 6:33 AM Age: 60 years old Clinical indication: Abnormal findings; Abnormal lab test; Elevated liver enzymes; Additional info: Transaminiits TECHNIQUE: Imaging protocol: US abdomen. Real time ultrasound with image documentation. Limited exam focused on the right upper quadrant. COMPARISON: No relevant prior studies available. FINDINGS: Liver: Normal. No masses. Gallbladder: No gallstones. There is no gallbladder wall thickening. Common bile duct: The common duct measures up to 5 mm. Pancreas: Visualized pancreas is unremarkable. Right kidney: The right kidney measures 10.3 cm in greatest dimension. There is no right renal mass, calcification or hydronephrosis. IMPRESSION: No gallstones or biliary duct dilatation. Electronically signed by: Ritchie Esqueda On 05/31/2020 06:55:21 AM
[2020-05-31] MEDS ORDERED: POTASSIUM CHLORIDE 10 MEQ SR TABLET PO ONE (07:00)
[2020-05-31] MEDS: HumaLOG INSULIN (NovoLOG) PER UNIT SC SCH ×2 (07:23→11:43)
[2020-05-31] MEDS: AZITHROMYCIN INJ 500 MG, VIAL MATE ADAPTER 1 EACH in D5W 250 ML IV SCH (07:44)
[2020-05-31 08:00] VITALS: O2SAT 92
[2020-05-31] MEDS: ASPIRIN 81 MG ENTERIC TAB PO SCH (08:51)
[2020-05-31] MEDS: SERTRALINE 100 MG TAB PO SCH (08:51)
[2020-05-31] MEDS: dexameTHASONE 4 MG/ML 1ML VIAL (J1100 PER 1MG) IV SCH (08:51)
[2020-05-31] MEDS: ENOXAPARIN 30MG/0.3ML SYRINGE (J1650 PER 10MG) SC SCH (08:51)
[2020-05-31] MEDS: guaiFENesin ER 600 MG TAB PO SCH (08:51)
[2020-05-31] MEDS ORDERED: PANTOPRAZOLE 40MG TAB (PROTONIX) PO SCH (09:00)
[2020-05-31] MEDS ORDERED: PANT40TA29 PO (09:50)
[2020-05-31] MEDS ORDERED: AZIT500T5 PO (09:50)
[2020-05-31] MEDS ORDERED: DEXA6TAB PO (09:50)
[2020-05-31] MEDS ORDERED: CEFD1CAP8 PO (09:50)
[2020-05-31] MEDS ORDERED: ASPI81TAEC PO (09:50)
[2020-05-31 10:32] LABS: HEPATITIS B SURFACE ANTIGEN NEGATIVE (NEGATIVE)
[2020-05-31 11:00] LABS: HEPATITIS B CORE ANTIBODY IGM NEGATIVE (NEGATIVE); HEPATITIS C VIRUS ABY INDEX 0.1 INDEX (<0.8)
[2020-05-31 11:02] LABS: HEPATITIS A ANTIBODY IGM NEGATIVE (NEGATIVE)
--- NOTE | 2020-05-31 11:42 | DS.PDOC ---
Discharge Summary General Date of Admission May 29, 2020 at 01:18 Date of Discharge 05/31/2020 Discharge Summary PROCEDURES PERFORMED DURING STAY: [None]. ADMITTING DIAGNOSES / DISCHARGE DIAGNOSES: Acute hypoxic respiratory failure - likely 2/2 COVID19 pneumonia, possibly 2/2 superimposed bacterial infection Transaminitis IDDM2 DLP Depression / Insomnia GI prophylaxis DVT prophylaxis COMPLICATIONS/CHIEF COMPLAINT: Shortness of breath HISTORY OF PRESENT ILLNESS: Patient is 60-year-old female with a PMHx of IDDM2, DLP, Depression , who presented to the emergency room with shortness of breath and cough and was found to have COVID19. Patient was admitted to the hospitalist service for further ev aluation and treatment HOSPITAL COURSE: Acute hypoxic respiratory failure - likely 2/2 COVID19 pneumonia, possibly 2/2 superimposed bacterial infection - Patient reports improvement of her breathing still reports a mild cough - Patient has been maintaining saturations on 1-2 L of oxygen as required 2 L of oxygen with ambulation. Will provide oxygen on discharge - Inflammatory markers improving - c/w Dexamethasone (Day #2) - s/p Remdesivir (re: Transaminitis) - c/w Ceftriaxone and azithromycin (Day #3); PCT trending down - c/w Mucinex / Incentive spirometry / Acapella Transaminitis - Improving - s/p Remdesivir - Hepatitis profile negative - Will avoid hepatotoxic medications - Liver US negative IDDM2 - c/w ISS and Levemir DLP - Atorvastatin on hold; will remain on hold Depression / Insomnia - c/w Sertraline GI prophylaxis - c/w Protonix; while on corticosteroids DVT prophylaxis - c/w Lovenox weight-based prophylactic dosing DISCHARGE MEDICATIONS: Please see below. ALLERGIES: Please see below. PHYSICAL EXAMINATION ON DISCHARGE: Vitals (See below) General: She remains lying in bed, appears to be comfortable, not in any acute distress, is awake, alert and oriented to person, place and time HEENT: NC, AT CVS: +S1S2 Lungs: Air entry appears to be fair bilaterally without any auscultated crackles, wheezing or rhonchi Abdomen: Soft without distention or tenderness Extremities: Lower extremities are free of any pitting edema LABORATORY DATA: Please see below. IMAGING: CXR 05/28: Clear appearing lungs. CTA chest 05/28: 1. Bilateral pulmonary infiltrates with areas of consolidation and fibro-atelectatic change consistent with pneumonia. 2. Rounded area of confluence in the medial right lower lobe and an underlying mass measuring 2.6 x 2.7 x 2.3 cm is not excluded. 3. Borderline bilateral hilar nodes. 4. Otherwise negative CTA chest. No pulmonary embolism is identified. Liver US 05/30: No gallstones or biliary duct dilatation. ACTIVITY: [As tolerated]. DISCHARGE PLAN: Follow-up with primary care provider within the next 7 days Remain compliant with treatment plan and medications Return to the ER if you experience any problems DISPOSITION: Home with services DISCHARGE CONDITION: [Stable]. TIME SPENT ON DISCHARGE: 35 minutes. Vital Signs/I&Os Vital Signs Date Time Temp Pulse Resp B/P (MAP) Pulse Ox O2 Delivery O2 Flow Rate FiO2 05/31/20 10:11 85 Room Air 05/31/20 10:11 2.0 05/31/20 05:54 97.4 66 16 99/51 (67) I&O- Last 24 Hours up to 6 AM 05/31/20 05:59 Intake Total 1080 ml Output Total 600 ml Balance 480 ml Laboratory Data Labs 24H Laboratory Tests 2 05/30/20 11:43: Bedside Glucose (Misc Panel) 162H 05/30/20 16:38: Bedside Glucose (Misc Panel) 262H 05/30/20 21:08: Bedside Glucose (Misc Panel) 176H 05/31/20 05:21: Nucleated Red Blood Cells % (auto) 0.4H, D-Dimer, Quantitative 1725.00H, Anion Gap 8, Glomerular Filtration Rate > 60.0, Calcium Level 8.7L, Ferritin 2274H, Total Bilirubin 0.3, Direct Bilirubin 0.2, Aspartate Amino Transf (AST/SGOT) 210H, Alanine Aminotransferase (ALT/SGPT) 315H, Alkaline Phosphatase 124H, C- Reactive Protein, Quantitative 5.86H, Total Protein 6.8, Albumin 2.6L, Albumin/Globulin Ratio 0.6L, Procalcitonin 0.42 05/31/20 05:50: Bedside Glucose (Misc Panel) 68L CBC/BMP Laboratory Tests 05/31/20 05:21 FSBS Laboratory Tests Test 05/30/20 11:43 05/30/20 16:38 05/30/20 21:08 05/31/20 05:50 Range/Units Bedside Glucose (Misc Panel) 162 262 176 68 80-115 MG/DL Microbiology Microbiology 05/29/20 Blood Culture - Preliminary, Resulted No Growth after 48 hours. All Specime... 05/28/20 Blood Culture - Preliminary, Resulted No Growth after 48 hours. All Specime... Discharge Medications Scheduled Aspirin (Aspirin EC) 81 Mg Tablet.dr, 81 MG PO DAILY Azithromycin (Azithromycin) 500 Mg Tablet, 1 TAB PO DAILY Cefdinir (Cefdinir) 300 Mg Capsule, 1 CAP PO BID Dexamethasone (Dexamethasone) 6 Mg Tablet, 1 TAB PO DAILY Ergocalciferol (Vitamin D2) (Vitamin D2) 50,000 Units Cap, 50,000 UNITS PO 1XWK, (Reported) TUESDAYS Ezetimibe (Zetia) 10 Mg Tablet, 10 MG PO QHS, (Reported) Insulin Glargine,Hum.rec.anlog (Lantus Solostar) 100 Unit/1 Ml Insuln.pen, 30 UNITS SC QHS, (Reported) Pantoprazole Sodium (Pantoprazole Sodium) 40 Mg Tablet.dr, 40 MG PO DAILY Sertraline Hcl (Zoloft) 100 Mg Tablet, 200 MG PO DAILY, (Reported) Sitagliptin Phos/Metformin HCl (Janumet 50-1,000 mg Tablet) 1 Each Tablet, 1 TAB PO BID, (Reported) Allergies Coded Allergies: codeine (Verified Allergy, Severe, 05/29/20) TONY ANTONIO MD May 31, 2020 11:42
[2020-05-31 14:34] LABS: MYCOPLASMA PNEUMONIAE IgG <100 U/mL (0-99); MYCOPLASMA PNEUMONIAE IgM <770 U/mL (0-769)
[2020-06-02 12:07] LABS: BODY FLUID CULTURE Not indicated. (.); LEGIONELLA ANTIGEN URINE Negative (Negative); ORGANISM ID Not indicated. (.); SPECIMEN SOURCE Urine (.); URINE STREP PNEUMONIAE ANTIGEN Negative (Negative)
== END 2020-05-31 13:00 | disposition home health service (06) | DRG 137 ==
LOC: M ED 22:27 → M ED INP 05-29 01:18 → M 4MAIN 05-29 03:01
PROVIDERS: ADMIT Internal Medicine; ATTEND Internal Medicine
DX: U07.1 COVID-19 (principal); J96.01 Acute respiratory failure with hypoxia; J12.82 Pneumonia due to coronavirus disease 2019; J15.9 Unspecified bacterial pneumonia; E11.9 Type 2 diabetes mellitus without complications; F32.9 Major depressive disorder, single episode, unspecified; G47.00 Insomnia, unspecified; Z79.82 Long term (current) use of aspirin; Z79.899 Other long term (current) drug therapy; Z79.4 Long term (current) use of insulin; Z88.5 Allergy status to narcotic agent; E78.5 Hyperlipidemia, unspecified